=== PATIENT | male | born 1980 | race Hispanic/Latino ===

== ENCOUNTER → 2019-05-28 | Day surgery (SDC) | payer SELFPAY ==
[2019-05-19 09:57] LABS: BASOPHILS % 0.4 % (0.0-1.0); EOSINOPHILS # (AUTO) 0.1 (0.0-0.4); EOSINOPHILS % 1.2 % (0.0-6.0); HEMATOCRIT 46.4 % (38.2-49.6); MEAN CORPUSCULAR HGB CONC 32.3 g/dL (31-35); MEAN CORPUSCULAR VOLUME 83.5 fL (81-99); MONOCYTES # (AUTO) 0.9 (0.2-0.8); MONOCYTES % 9.3 % (4.4-11.3); NEUTROPHILS # (AUTO) 5.5 (2.1-6.9); NEUTROPHILS % 57.7 % (38.7-80.0); PLATELET COUNT 265 x10e3/uL (140-360); RED BLOOD COUNT 5.56 x10e6/uL (4.3-5.7); RED CELL DISTRIBUTION WIDTH 17.1 % (11.7-14.4)
[2019-05-19 10:15] LABS: ANION GAP 11.1 mmol/L (8-16); BLOOD UREA NITROGEN 12 mg/dL (7-26); BUN/CREATININE RATIO 11 (6-25); CALCIUM 9.3 mg/dL (8.4-10.2); CARBON DIOXIDE 27 mmol/L (22-29); CHLORIDE 106 mmol/L (98-107); CREATININE, SERUM 1.11 mg/dL (0.72-1.25); EST GLOMERULAR FILTRATION RATE > 60 ML/MIN (60-); GLUCOSE 75 mg/dL (74-118); POTASSIUM 4.1 mmol/L (3.5-5.1); SODIUM 140 mmol/L (136-145)
[~2019-05-28] MED LIST: ACETAMINOPHEN 1000 MG/100 ML IV ONE; BETAMETHASONE DISODIUM PHOS 6 MG/ML VIAL ONE; BUPIVACAINE HCL 0.5% INJ 30 ML VIAL INJ ONE; CEFAZOLIN SOD 1 GM/NS 50ML 100 ML IV ONE; DEXAMETHASONE SOD PHOS INJ 4 MG/ML VIAL ONE; FENTANYL CITRATE/PF 100MCG/2 ML INJ ONE; HYDROMORPHONE 1MG/1ML INJ ONE; IBUPROFEN400 MG PO; KETOROLAC TROMETHAMINE 30 MG/ML VIAL ONE; LIDOCAINE HCL 1% LOCAL INJ 20 ML VIAL ONE; LIDOCAINE HCL 2% LOCAL INJ 5 ML SDV VIAL INJ ONE; MEPERIDINE HCL INJ 25 MG/ML VIAL ONE; MIDAZOLAM HCL 2 MG/2 ML VIAL ONE; MUPIROCIN 2% OINT 22 GM TUBE ONE; ONDANSETRON HCL INJ 2MG/ML 2ML 2 MG/ML VIAL ONE; PROPOFOL IV EMULSION 10 MG/ML 20 ML VIAL ONE; SEVOFLURANE INHAL SOLN 250 ML PEN BTL ONE
[2019-05-28 09:10] VITALS: BP 136/94
--- NOTE | 2019-05-28 09:39 | Diagnostic Imaging Report ---
EXAMINATION: ANKLE TWO VIEWS RIGHT INDICATION: Postoperative COMPARISON: None FINDINGS: 3 views of the right ankle demonstrate postoperative findings of medial malleolus fixation with 2 partially threaded screws. Alignment appears anatomic. Mild overlying soft tissue swelling at the medial ankle. Overlying gauze material obscures fine bony detail. IMPRESSION: Postoperative findings of medial malleolus fixation as above. Signed by: Sriram Crenshaw MD on 05/28/2019 9:36 AM
--- NOTE | 2019-05-28 12:29 | Operative Report ---
DATE OF PROCEDURE: 05/28/2019 SURGEON: Vincent Cohen DPM PREOPERATIVE DIAGNOSIS: Fractured right ankle. POSTOPERATIVE DIAGNOSES: Confirmed. OPERATIVE PROCEDURES: Open reduction and internal fixation of right ankle and repair of medial deltoid ankle ligament. PROCEDURE IN DETAIL: The patient was taken into the operating room and placed on the operative table in supine position. Following induction of general anesthesia by the anesthesiologist, Webril wraps were placed on the patient's right thigh followed by application of right thigh tourniquet. The right lower extremity was then prepped and draped in the usual aseptic manner and following procedures were then performed. Procedure #1: ORIF of right ankle. Attention was directed to the medial aspect of the right talotibial joint, where a curvilinear incision was performed overlying the medial malleolus. The incision was deepened via sharp and blunt dissection, being careful to retract any vital structures and ligate any superficial vessels as necessary. Once the fracture fragment was clearly visualized, the talar dome was inspected for any talar dome lesion and none was encountered. Some rupture of the deltoid ligament was noted. At this point, utilizing proper AO technique, a 4.0, 15 mm cortical screw x2 was used to achieve stability of the fractured fragment. Intraoperative fluoroscopy was then used to make sure proper alignment and fixation was achieved. Repair of the deltoid ligament was achieved via over a [id number] type of fashion utilizing 2-0 Vicryl. All areas were then copiously flushed with sterile antibiotic solution and suction, and closure was then obtained utilizing 3-0 Vicryl, 4-0 Vicryl, and 3-0 nylon. Approximately, 10 mL of 0.5% plain Marcaine plus 10 mL of 1% lidocaine plain were then used to achieve local anesthesia of the above-mentioned surgical area. Sterile dressing was applied. Upon release of the thigh tourniquet, blood hyperemia was noted immediate to all digits of the patient's right foot. A properly placed posterior splint was then applied keeping the foot at 90 degrees to try to avoid any type of postop complications. The patient was transferred from the OR to recovery room with vital signs stable and neurovascular status intact. Intraoperative pictures were taken revealing good surgical alignment. The patient is to remain nonweightbearing with the aid of the crutches and is to follow up within one week in the office. QUENTIN Esquivel /[id number]
== END | disposition home or self-care (01) ==
LOC: OR 05:22
PROVIDERS: ATTEND Podiatrist Foot Surgery
DX: S82.891A Other fracture of right lower leg, initial encounter for closed fracture (principal); S93.421A Sprain of deltoid ligament of right ankle, initial encounter; F17.210 Nicotine dependence, cigarettes, uncomplicated; X58.XXXA Exposure to other specified factors, initial encounter; Z01.812 Encounter for preprocedural laboratory examination
CPT/HCPCS: 27695; 27766; 36415; 73600; 80048; 85025; C1713; J0131; J0690; J0720; J1100; J1170; J1885; J2001 ×2; J2175; J2250; J2405; J2704; J3010